=== PATIENT | male | born 1940 | race Caucasian/White ===

== ENCOUNTER 2018-09-24 14:58 | Emergency (ER) | payer MEDICARE ==
--- NOTE | 2018-09-24 15:06 | UC ---
Knee Pain HPI - History of Current Complaint Stated Complaint: KNEE PAIN Time Seen by Provider: 09/24/18 15:05 Hx Obtained From: Patient - Allergies/Home Medications Allergies/Adverse Reactions: Allergies Allergy/AdvReac Type Severity Reaction Status Date / Time Codeine [Codeine] Allergy Unknown Verified 06/14/16 11:50 Reaction Details MEDICATED SKIN SPRAY Allergy RED HEAVY Uncoded 06/14/16 11:50 RASH PMH/Surg Hx/FS Hx/Imm Hx - Additional Past Medical History Additional PMH: BPH Cardiovascular History: Hypertension - Surgical History Surgical History: Yes Surgery Procedure, Year, and Place: 1986 LEFT EYE SURGERY FOR CROSS EYE, 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 01/02/2005 CYSTOSCOPY LEFT RETROGRADE, [place] URETERAL [place]UL[place] [facility] [place] [facility] [place] CYSTOSCOPY RIGHT RETROGRADE, STENT INSERTION, FRAGMENT[place]OVAL OF [place] [facility] [place] - Family History Known Family History: Positive: Cardiac Disease, Hypertension - Social History Occupation: Retired Lives: With Family Alcohol Use: Occasionally Substance Use Type: None Smoking Status (MU): Former Smoker Type: Cigars, Pipe Amount Used/How Often: PIPE AND CIGARS Have You Smoked in the Last Year: No When Did the Patient Quit Smoking/Using Tobacco: LATE 1970'S Review of Systems All Other Systems Reviewed And Are Negative: Yes Constitutional: Positive: Negative Skin: Positive: Negative Respiratory: Positive: Negative Cardiovascular: Positive: Negative Neurovascular: Positive: Negative Musculoskeletal: Positive: Other: - Knee pain Neurological: Positive: Negative Psychological: Positive: Negative Knee Pain Course/Dx - Course Course Of Treatment: XR: Discharge - Sign-Out/Discharge Documenting (check all that apply): Patient Departure All imaging exams completed and their final reports reviewed: Yes - Discharge Plan Condition: Stable Disposition: HOME Patient Education Materials: Knee Pain (ED) Referrals: Hebert Spears MD [Primary Care Provider] - Germaine Hernandez MD [Medical Doctor] - As Soon As Possible Additional Instructions: If you develop a fever, shortness of breath, chest pain, new or worsening symptoms - please call your PCP or go to the ED. Your blood pressure was high at todays visit. Please see your primary provider within 4 weeks for recheck and re-evaluation. 1) Rest, Ice, and elevate your knee as much as possible 2) Please call Orthopedics at the number below to schedule a follow up appointment for further evaluation - Billing Disposition and Condition Condition: STABLE Disposition: Home
[2018-09-24 15:22] VITALS: BP 142/79
--- NOTE | 2018-09-24 15:37 | UC ---
Knee Pain HPI - HPI Summary HPI Summary: 77-year-old male comes to clinic today with a chief complaint of right knee pain and swelling. I week ago while working on a car he twisted his right knee and he felt a pop. He had pain then but he worked through IT. The next day he reinjured the knee and the knee started swelling. Pains worse with flexion and extension. It feels stable for ambulation. Today while sitting in mandaeism felt his lower leg starting to get numb. When he straightened out as needed the numbness improved. He has no prior history of blood clots. - History of Current Complaint Chief Complaint: UCLowerExtremity Stated Complaint: KNEE PAIN Time Seen by Provider: 09/24/18 15:05 Pain Intensity: 0 - Allergies/Home Medications Allergies/Adverse Reactions: Allergies Allergy/AdvReac Type Severity Reaction Status Date / Time MS Codeine [Codeine] Allergy Unknown Verified 06/14/16 11:50 Reaction Details MEDICATED SKIN SPRAY Allergy RED HEAVY Uncoded 06/14/16 11:50 RASH Home Medications: Home Medications Chondroitin Sulfate A Sodium [Chondroitin Sulfate Sodium] 09/24/18 [History] PMH/Surg Hx/FS Hx/Imm Hx Previously Healthy: Yes - Surgical History Surgical History: Yes Surgery Procedure, Year, and Place: 1986 LEFT EYE SURGERY FOR CROSS EYE, 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 01/02/2005 CYSTOSCOPY LEFT RETROGRADE, LEFT URETERAL CALCULI MANIPULATION AND URETERAL STENT INSERTION, [facility] [place]. 01/08/2005 ESWL LEFT URETERAL CALCULI, [facility] [place]. 06/04/2016 CYSTOSCOPY RIGHT RETROGRADE, STENT INSERTION, FRAGMENTATION AND REMOVAL OF BLADDER CALCULI, [facility] [place] - Family History Known Family History: Positive: Non-Contributory - Social History Alcohol Use: Occasionally Substance Use Type: None Smoking Status (MU): Former Smoker Type: Cigars, Pipe Amount Used/How Often: PIPE AND CIGARS Have You Smoked in the Last Year: No When Did the Patient Quit Smoking/Using Tobacco: LATE 1970'S Review of Systems All Other Systems Reviewed And Are Negative: Yes Constitutional: Positive: Negative Skin: Positive: Negative Eyes: Positive: Negative ENT: Positive: Negative Respiratory: Positive: Negative Cardiovascular: Positive: Negative Gastrointestinal: Positive: Negative Motor: Positive: Negative Neurovascular: Positive: Decreased Sensation - SEE HPI Musculoskeletal: Positive: Other: - SEE HPI Neurological: Positive: Paresthesia - SEE HPI Psychological: Positive: Negative Is Patient Immunocompromised?: No Physical Exam Triage Information Reviewed: Yes Appearance: Well-Appearing, No Pain Distress, Well-Nourished Vital Signs: Initial Vital Signs Temp 98.3 F 09/24/18 15:12 Pulse 93 09/24/18 15:12 Resp 16 09/24/18 15:12 BP 142/79 09/24/18 15:12 Pulse Ox 95 09/24/18 15:12 Vital Signs Reviewed: Yes Eye Exam: Normal Eyes: Positive: Conjunctiva Clear Neck exam: Normal Neck: Positive: Supple Respiratory: Positive: No respiratory distress Musculoskeletal: Positive: Strength Intact, ROM Intact, Other: - Right knee has an effusion. It's mildly tender to palpation in the popliteal area. Mildly tender to lateral MACMurray's. Stable to exam. Calf is nontender to palpation. Normal dorsalis pedis posterior tibial pulses capillary refill is normal. Patient reports decreased sensation on the ball of the right foot otherwise sensation is normal. Neurological Exam: Normal Neurological: Positive: Alert, Muscle Tone Normal Psychological Exam: Normal Psychological: Positive: Age Appropriate Behavior Skin Exam: Normal Knee Pain Course/Dx - Course Course Of Treatment: Order Information: KNEE RIGHT 4+ VWS. Accession Number: [id number]. CPT: 94400. Indication: Mills pop at the RIGHT knee. Pain radiates to foot. Comparison: February 04, 2008. Technique: RIGHT knee: Supine AP , tunnel, lateral, sunrise views. Report: Small joint effusion. Osteoarthritis with moderate medial joint space narrowing. and partial flattening of the articular surfaces with associated subchondral sclerosis. Negative for fracture. Mild nonfocal soft tissue swelling. IMPRESSION: #. Negative for fracture. Osteoarthritis. Small effusion. . <Electronically signed by Manuel Daniels MD in OV> 09/24/18 2366. I discussed the x-ray reports with the patient and his partner. Patient does have a knee effusion on the right. There is most probably some internal derangement perhaps a torn meniscus. The plan is ice elevation rests and naproxen. Follow-up with orthopedics. I believe the mechanism for the right foot paresthesia is the effusion compressing a nerve at the knee. Patient has not had no calf tenderness so I believe a DVT is unlikely. I discussed all this with the patient and let him know that if his catheter started giving him pain if he is concerned about a DVT needs to get a venous Doppler which we do not have available here in clinic today. No when we do have the venous Doppler and also that the emergency department always has the ability to check for DVTs and to go to the emergency department if anything gets worse or is any questions or concerns. His follow-up would be with primary care doctor and orthopedics. - Differential Dx/Diagnosis Provider Diagnosis: Effusion, right knee, Paresthesia of right lower extremity Discharge - Sign-Out/Discharge Documenting (check all that apply): Patient Departure All imaging exams completed and their final reports reviewed: Yes - Discharge Plan Condition: Stable Disposition: HOME Patient Education Materials: Knee Pain (ED), Swollen Knee Joint (ED) Referrals: Germaine Abrams MD [Medical Doctor] - As Soon As Possible Hebert Spears MD [Primary Care Provider] - Additional Instructions: TAKE ALEVE/NAPROXSEN DIRECTED. REST, ICE AND ELEVATE THE KNEE. Your blood pressure was high at todays visit. Please see your primary provider within 4 weeks for recheck and re-evaluation. FOLLOW UP WITH ORTHOPEDICS, DR ABRAMS. FOLLOW UP WITH YOUR PRIMARY CARE DOCTOR. GET RECHECKED FOR ANY WORSENING OF YOUR CONDITION; PAIN, CONTINUED OR WORSE NUMBNESS, DECREASED CIRCULATION IN THE LEG OR QUESTIONS OR CONCERNS. - Billing Disposition and Condition Condition: STABLE Disposition: Home
== END 2018-09-24 16:31 | disposition home or self-care (01) ==
LOC: UCEAST 14:58
DX: M25.461 Effusion, right knee (principal); R20.2 Paresthesia of skin; M17.11 Unilateral primary osteoarthritis, right knee; Z88.5 Allergy status to narcotic agent; Z87.891 Personal history of nicotine dependence
CPT/HCPCS: 99211; G0463

== ENCOUNTER 2018-12-06 08:39 | Emergency (ER) | payer MEDICARE ==
[2018-12-06 09:03] VITALS: BP 168/88
--- NOTE | 2018-12-06 09:40 | UC ---
Respiratory Complaint HPI - HPI Summary HPI Summary: 3-4 days of cough, congestion, headache, body aches and fatigue. Patient feels like he "just can't get going". No flu shot this season. No documented fever. Temperature 99.9 here in the UC. - History of Current Complaint Chief Complaint: UCRespiratory Stated Complaint: RESP ISSUE Time Seen by Provider: 12/06/18 09:33 Hx Obtained From: Patient Onset/Duration: Gradual Onset, Lasting Days, Still Present Timing: Constant Severity Initially: Moderate Severity Currently: Moderate Pain Intensity: 2 Pain Scale Used: 0-10 Numeric Character: Cough: Nonproductive Aggravating Factors: Nothing Alleviating Factors: Nothing Associated Signs And Symptoms: Positive: URI, Nasal Congestion. 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 01/02/2005 CYSTOSCOPY LEFT RETROGRADE, [place]RETERAL CALCULI [place]IPUL[place] [facility] [place] [facility] [place]. [place] CYSTOSCOPY RIGHT RETROGRADE, STENT INSERTION, FRAG[place] AND [place] [facility] [place] Family History Known Family History: Positive: Non-Contributory - Social History Alcohol Use: Occasionally Substance Use Type: None Smoking Status (MU): Former Smoker Type: Cigars, Pipe Amount Used/How Often: PIPE AND CIGARS Have You Smoked in the Last Year: No When Did the Patient Quit Smoking/Using Tobacco: LATE 1970'S Review of Systems All Other Systems Reviewed And Are Negative: Yes Constitutional: Positive: Fatigue ENT: Positive: Nasal Discharge Respiratory: Positive: Cough Cardiovascular: Positive: Negative Gastrointestinal: Positive: Nausea Musculoskeletal: Positive: Myalgia Neurological: Positive: Headache Physical Exam Triage Information Reviewed: Yes Appearance: No Pain Distress, Well-Nourished, Ill-Appearing - FATIGUED Vital Signs: Initial Vital Signs Temp 99.9 F 12/06/18 09:00 Pulse 89 12/06/18 09:00 Resp 20 12/06/18 09:00 BP 168/88 12/06/18 09:00 Pulse Ox 96 12/06/18 09:00 Laboratory Tests 12/06/18 09:43 Influenza A (Rapid) Positive A Vital Signs Reviewed: Yes Eyes: Positive: Conjunctiva Clear ENT: Positive: Hearing grossly normal, Pharynx normal Neck: Positive: Supple, Nontender, No Lymphadenopathy Respiratory Exam: Normal Cardiovascular Exam: Normal Abdomen Description: Positive: Soft Musculoskeletal: Positive: No Edema Neurological: Positive: Alert Psychological: Positive: Age Appropriate Behavior Skin: Negative: Rashes UC Diagnostic Evaluation - Laboratory O2 Sat by Pulse Oximetry: 96 Respiratory Course/Dx - Differential Dx/Diagnosis Provider Diagnosis: Influenza A Discharge - Sign-Out/Discharge Documenting (check all that apply): Patient Departure All imaging exams completed and their final reports reviewed: No Studies - Discharge Plan Condition: Stable Disposition: HOME Prescriptions: Oseltamivir CAP* [Tamiflu CAP*] 75 mg PO BID #10 cap Patient Education Materials: Influenza (ED) Referrals: Hebert Spears MD [Primary Care Provider] - If Needed Additional Instructions: SWAB POSITIVE FOR INFLUENZA A. TAMIFLU TWICE DAILY FOR 5 DAYS. OTC MEDS NEEDED FOR FEVER, BODY ACHES. STAY WELL HYDRATED AND RESTED. SEEK FOLLOW-UP IF YOU ARE NOT IMPROVING EXPECTED. - Billing Disposition and Condition Condition: STABLE Disposition: Home
[2018-12-06 09:48] LABS: Influenza A Molecular POSITIVE (Negative)
== END 2018-12-06 10:00 | disposition home or self-care (01) ==
LOC: UCEAST 08:39
DX: J10.1 Influenza due to other identified influenza virus with other respiratory manifestations (principal); I10 Essential (primary) hypertension; Z87.891 Personal history of nicotine dependence; Z88.5 Allergy status to narcotic agent; Z88.8 Allergy status to other drugs, medicaments and biological substances
CPT/HCPCS: 99212; G0463

== ENCOUNTER 2018-12-25 11:39 | Emergency (ER) | payer MEDICARE ==
[2018-12-25 11:54] VITALS: BP 175/92
--- NOTE | 2018-12-25 11:56 | UC ---
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 01/02/2005 CYSTOSCOPY LEFT RETROGRADE, LEFT URETERAL CALCULI MANIPULATION [place]RETERAL [place] [facility] [place] [facility] [place] CYSTOSCOPY RIGHT RETROGRADE, STENT INSERTION, FRAGMENTATION AND [place]ADDER [place] [facility] [place] Family History Known Family History: Positive: Non-Contributory - Social History Alcohol Use: Occasionally Substance Use Type: None Smoking Status (MU): Former Smoker Type: Cigars, Pipe Amount Used/How Often: PIPE AND CIGARS Have You Smoked in the Last Year: No When Did the Patient Quit Smoking/Using Tobacco: LATE 1969'S Physical Exam Vital Signs: Initial Vital Signs Temp 98.9 F 12/25/18 11:46 Pulse 86 12/25/18 11:46 Resp 18 12/25/18 11:46 BP 175/92 12/25/18 11:46 Pulse Ox 97 12/25/18 11:46 Discharge - Discharge Plan Referrals: Hebert Spears MD [Primary Care Provider] -
--- NOTE | 2018-12-25 12:19 | UC ---
Shoulder Pain HPI - HPI Summary HPI Summary: 78-year-old male comes with a chief complaint of left shoulder pain. Patient slipped and fell on the ice last evening and landed on his left elbow and shoulder. Pain is worse with an touching it and movement of the shoulder. No complaint of any chest pain or shortness of breath or other injury. Range of motion is limited in the left shoulder. No complaint of any numbness. 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 01/02/2005 CYSTOSCOPY LEFT RETROGRADE, LEFT URETERAL CALCULI MANIPULATION AND URETERAL STENT INSERTION, [facility] [place]. 01/08/2005 ESWL LEFT URETERAL CALCULI, [facility] [place]. 06/04/2016 CYSTOSCOPY RIGHT RETROGRADE, STENT INSERTION, FRAGMENTATION AND REMOVAL OF BLADDER CALCULI, [facility] [place] - Family History Known Family History: Positive: Non-Contributory - Social History Alcohol Use: Occasionally Substance Use Type: None Smoking Status (MU): Former Smoker Type: Cigars, Pipe Amount Used/How Often: PIPE AND CIGARS Have You Smoked in the Last Year: No When Did the Patient Quit Smoking/Using Tobacco: LATE S Review of Systems All Other Systems Reviewed And Are Negative: Yes Constitutional: Positive: Negative Skin: Positive: Negative Eyes: Positive: Negative ENT: Positive: Negative Respiratory: Positive: Negative Cardiovascular: Positive: Negative Gastrointestinal: Positive: Negative Motor: Positive: Other - SEE HPI Neurovascular: Positive: Negative Musculoskeletal: Positive: Other: - SEE HPI Neurological: Positive: Negative Psychological: Positive: Negative Is Patient Immunocompromised?: No Physical Exam Triage Information Reviewed: Yes Appearance: Well-Appearing, No Pain Distress, Well-Nourished Vital Signs: Initial Vital Signs Temp 98.9 F 12/25/18 11:46 Pulse 86 12/25/18 11:46 Resp 18 12/25/18 11:46 BP 175/92 12/25/18 11:46 Pulse Ox 97 12/25/18 11:46 Vital Signs Reviewed: Yes Eye Exam: Normal Eyes: Positive: Conjunctiva Clear Neck exam: Normal Neck: Positive: Supple, Nontender Respiratory: Positive: Lungs clear, Normal breath sounds, No respiratory distress Musculoskeletal: Positive: Other: - Normal bilateral radial pulses. Normal capillary refill bilateral arms and hands. No sensation deficits in the arms. Fingers wrists and elbows have full range of motion full-strength. Right shoulder is tender to palpation in the joint. Clavicle is nontender scapula is nontender. Patient's range of motion with the left shoulder is extremely limited to approximately 30 for extension and abduction. Did not attempt internal rotation. Neurological: Positive: Alert Psychological Exam: Normal Psychological: Positive: Age Appropriate Behavior Skin Exam: Normal Shoulder Course/Dx - Course Course Of Treatment: Patient declined sling. F/U orthopedics. - Differential Dx/Diagnosis Provider Diagnosis: Injury of left rotator cuff, Left shoulder pain Discharge - Sign-Out/Discharge Documenting (check all that apply): Patient Departure All imaging exams completed and their final reports reviewed: Yes - Discharge Plan Condition: Stable Disposition: HOME Patient Education Materials: Rotator Cuff Injury (ED), Shoulder Pain (ED) Referrals: Hebert Spears MD [Primary Care Provider] - Juan Monique MD [Medical Doctor] - Additional Instructions: FOLLOW UP WITH ORTHOPEDICS. GET RECHECKED FOR ANY WORSENING OF YOUR CONDITION OR QUESTIONS OR CONCERNS. - Billing Disposition and Condition Condition: STABLE Disposition: Home
== END 2018-12-25 13:24 | disposition home or self-care (01) ==
LOC: UCEAST 11:39
DX: M25.512 Pain in left shoulder (principal); S46.002A Unspecified injury of muscle(s) and tendon(s) of the rotator cuff of left shoulder, initial encounter; Z87.891 Personal history of nicotine dependence; Z88.5 Allergy status to narcotic agent; Z88.8 Allergy status to other drugs, medicaments and biological substances; W00.0XXA Fall on same level due to ice and snow, initial encounter; Y92.9 Unspecified place or not applicable
CPT/HCPCS: 99211; G0463

== ENCOUNTER 2019-01-29 15:07 | Emergency (ER) | payer MEDICARE ==
--- OUTSIDE RECORDS SUMMARY | 2019-01-29 15:28 | XMS REPORT | Continuity of Care Document ---
:1940 External Reference #:[id number] Author Name Minoo Kim Care Team Providers Name Role Phone Hebert Spears MD Primary Care Physician Unavailable Payers Date Identification Numbers Payment Provider Subscriber Policy Number: [id number] Medicare Blue Ppo Roderick Thomson PayID: [id number] [address] [address] [place] [address] Effective: 2003 Policy Number: [id number] Medicare Roderick Thomson Expires: 2018 PayID: [id number] [address] [place] [address] Expires: 2018 Policy Number: [facility] Roderick Thomson [id number] PayID: [id number] [address] [place] [address] Advance Directives Description No Information Available Problems Description No Information Family History Date Family Member(s) Observation Comments General No Current Problems Social History Type Date Description Comments Sex Unknown Lives With Alone Occupation Retired ETOH Use Occasionally consumes alcohol Tobacco Use Start: Unknown Patient has never smoked Smoking Status Reviewed: 01/08/19 Patient has never smoked Exercise Type/Frequency Exercises sporadically Allergies, Adverse Reactions, Alerts Description No Known Drug Allergies Medications Medication Date Status Form Strength Qnty SIG Indications Ordering Provider Oseltamivir Phosphate Active Capsules 75mg Take 1 Unknown /0000 Capsule By Mouth Twice A Day Irbesartan Active Tablets 150mg [place], / MD Hebert Tamsulosin HCL Active Capsules 0.4mg [place], / MD Hebert Hydrochlorothiazide Active Tablets 25mg Katie /0000 Tia NP Immunizations Description No Information Available Vital Signs Date Vital Result Comment 01/08/2019 8:30am Height 70 inches 5'10" Weight 255.00 lb Heart Rate 70 /min BP Systolic 134 mmHg BP Diastolic 80 mmHg Respiratory Rate 20 /min Pain Level 5 BMI (Body Mass Index) 36.6 kg/m2 12/27/2018 10:02am Height 70 inches 5'10" Weight 255.00 lb Heart Rate 78 /min BP Systolic 120 mmHg BP Diastolic 76 mmHg Respiratory Rate 20 /min Pain Level 6 BMI (Body Mass Index) 36.6 kg/m2 Results Description No Information Available Procedures Description No Information Available Encounters Type Date Location Provider Dx Diagnosis Office Visit 11/22/2009 [facility] Say Galarza, 599.0 UTI Urinary Tract 12:15a valerio Morrison M.D. Infection Site Hospitalists Not Spec 401.9 Hypertension Unspec Office Visit 11/21/2009 12:30a [facility] Lalit Mims, 599.0 UTI Urinary valerio Morrison M.D. Tract Infection Hospitalists Site Not Spec 995.91 Sepsis 401.9 Hypertension Unspec 436 Cerebrovascular Disease Acute Ill-Defined 327.23 Obstructive Sleep Apnea Adult & Pediatric Plan of Treatment 01/08/2019 - Jhonny Enamorado M.D.S46.012D Strain of muscle(s) and tendon(s) of the rotator cuff of lefFollow up:Follow up: As needed Move the left shoulder as much as able each day. Go up, out, and to your back Work overhead if able. If continued pain and problems, please see Dr. Ma
--- NOTE | 2019-01-29 15:42 | ED ---
Laceration/Wound HPI - HPI Summary HPI Summary: 78-year-old male presents with left hand laceration today. He states that he cut it while he was working on a car. He denies any foreign body in the wound. He states that he cut it a couple hours ago. tetanus is up-to-date. He is not diabetic. it is not actively bleeding. has full range of motion. No numbness or tingling. No other injury. - History of Current Complaint Stated Complaint: LEFT HAND LACERATION PER PT Time Seen by Provider: 01/29/19 15:21 Pain Intensity: 0 - Allergy/Home Medications Allergies/Adverse Reactions: Allergies Allergy/AdvReac Type Severity Reaction Status Date / Time codeine Allergy unk Verified 01/01/19 14:37 MEDICATED SKIN SPRAY Allergy RED HEAVY Uncoded 01/01/19 14:37 RASH PMH/Surg Hx/FS Hx/Imm Hx Endocrine/Hematology History: Denies: Hx Diabetes Cardiovascular History: Reports: Hx Hypertension - HCTZ Denies: Hx Pacemaker/ICD Respiratory History: Reports: Hx Sleep Apnea History: Reports: Hx Kidney Stones - BILATERAL, Other Problems/Disorders - HX OF BLADDER CALCULI, CURRENTLY ENLARGE PROSTATE Denies: Hx Renal Disease Musculoskeletal History: Reports: 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 01/02/2005 CYSTOSCOPY LEFT RETROGRADE, LEFT URETERAL CALCULI MANIPULATION AND URETER[place] ST[place] [facility] [place]/08/2005 ESWL LEFT URETERAL CALCULI, [facility] [place]/04/2016 CYSTOSCOPY RIGHT RETROGRADE, STENT INSERTION, FRAGMENTATION AND REMOVAL OF BLADDER CALCULI[place] [facility] [place] Anesthesia Reactions: No Infectious Disease History: No Infectious Disease History: Denies: Traveled Outside the [place] in Last 30 Days - Family History Known Family History: Positive: Non-Contributory - Social History Alcohol Use: Occasionally Substance Use Type: Reports: None Smoking Status (MU): Former Smoker Type: Cigars, Pipe Amount Used/How Often: PIPE AND CIGARS Have You Smoked in the Last Year: No Review of Systems Negative: Fever Negative: Chest Pain Negative: Shortness Of Breath Positive: Other - left hand laceration All Other Systems Reviewed And Are Negative: Yes Physical Exam Triage Information Reviewed: Yes Vital Signs On Initial Exam: Initial Vitals Temp Pulse Resp BP Pulse Ox 98.2 F 84 17 171/92 93 01/29/19 15:12 01/29/19 15:12 01/29/19 15:12 01/29/19 15:12 01/29/19 15:12 Vital Signs Reviewed: Yes Appearance: Positive: Well-Appearing Skin: Positive: Warm, Dry, Other - 6cm by 1/2cm semicircular laceration to left hand near thumb Head/Face: Positive: Normal Head/Face Inspection Eyes: Positive: Normal, Conjunctiva Clear ENT: Positive: Pharynx normal Respiratory/Lung Sounds: Positive: Clear to Auscultation, Breath Sounds Present Cardiovascular: Positive: Normal, RRR Musculoskeletal: Positive: Strength/ROM Intact - left hand, Other - good pulses Neurological: Positive: Normal Psychiatric: Positive: Normal Procedures - Laceration/Wound Repair 1 Location: Other - left dorsan hand Description: Irregular Anesthesia: 1.0%, Lido Length, Depth and Shape: 6 cm wide, 0.5 cm deep, U shape Betadine Prep?: No Irrigated w/ Saline (ccs): 500 Laceration/Wound Explored: contaminated Closure: Single Layer Suture Type: Prolene - 4-0 Number of Sutures: 8 Layer Closure?: No Sterile Dressing Applied?: No - telfa and coban Diagnostics - Vital Signs Vital Signs Temp Pulse Resp BP Pulse Ox 01/29/19 15:12 98.2 F 84 17 171/92 93 - Laboratory Lab Statement: Any lab studies that have been ordered have been reviewed, and results considered in the medical decision making process. Laceration Repair Course/Dx - Course Course Of Treatment: 78-year-old male presents with left hand laceration today. He states that he cut it while he was working on a car. He denies any foreign body in the wound. He states that he cut it a couple hours ago. tetanus is up-to-date. He is not diabetic. it is not actively bleeding. has full range of motion. No numbness or tingling. No other injury. On exam has 6 cm by 1/2cm laceration of dorsum of left hand. Laceration repair performed by HUMAIRA Harvey. 6 cm irregular laceration was repaired with 8 simple interrupted 4-0 prolene suture. 5 cc of 1% lidocaine injected to the laceration prior to repair. The area was irrigated with 500 cc of saline. Telfa and coban was used to dress the area. Pt tolerated procedure well. told to keep area clean and dry. patient requesting antibiotic. patient understand and agrees with plan. - Differential Dx Differental Diagnoses: Abrasion, Avulsion, Laceration - Clinical Impression Provider Diagnoses: Laceration of left hand Discharge - Sign-Out/Discharge Documenting (check all that apply): Patient Departure Patient Received Moderate/Deep Sedation with Procedure: No - Discharge Plan Condition: Good Disposition: HOME Prescriptions: Cephalexin CAP* [Keflex CAP*] 500 mg PO BID #10 cap Patient Education Materials: Care For Your Stitches (ED) Referrals: Hebert Spears MD [Primary Care Provider] - Additional Instructions: Take Tylenol for pain every 6 hours as needed Keep area clean and dry for 24 hours Return to ED or primary in 8-10 days to have sutures removed take keflex twice a day for 5 days Return to ED if develop signs of infection such as fever, spreading redness, or pus. - Billing Disposition and Condition Condition: GOOD Disposition: Home
[2019-01-29] MEDS ORDERED: Tetan/Diph/Pertus SYR(Tdap)* 0.5 ML SYR(BOOSTRIX) use SYR IM ONE (17:12)
[2019-01-29 17:21] VITALS: BP 177/98
== END 2019-01-29 17:20 | disposition home or self-care (01) ==
LOC: ED 15:07
DX: S61.412A Laceration without foreign body of left hand, initial encounter (principal); W45.8XXA Other foreign body or object entering through skin, initial encounter; Y92.9 Unspecified place or not applicable; I10 Essential (primary) hypertension; Z87.442 Personal history of urinary calculi; Z87.891 Personal history of nicotine dependence
CPT/HCPCS: 12002; 90471; 90715; 99282

== ENCOUNTER 2020-12-19 07:52 | Inpatient (IN) ==
[~2020-12-19 07:52] MED LIST: Buffered Lidocaine 1% SYRIN 1 ml INTRADERM ONE; Famotidine IV 10 MG/ML 2 ml VIAL (20 mg) IV ONE; Lactated Ringers 1000 ml BAG 1,000 ML IV SCH
[2020-12-19] MEDS ORDERED: Famotidine IV 10 MG/ML 2 ml VIAL (20 mg) ONE (08:19)
[2020-12-19] MEDS ORDERED: Propofol 10 MG/ML 20 ML BTL ONE (09:09)
[2020-12-19] MEDS ORDERED: fentaNYL 250 mcg/5 ml 50 MCG/ML 5 ml VIAL (250 MCG) ONE (09:09)
[2020-12-19] MEDS ORDERED: Ondansetron 4 mg VIAL 2 MG/ML 2 ml VIAL ONE (09:09)
[2020-12-19] MEDS ORDERED: Dexamethasone IV 4 MG/ML VIAL 1 ml VIAL ONE (09:09)
[2020-12-19] MEDS ORDERED: Succinylcholine 200 mg VIAL 20 mg/ml 10 ml VIAL (200 mg) ONE (09:09)
[2020-12-19] MEDS ORDERED: Lidocaine 2% w/ EPI 1:200,000 MPF 20 ML SDV VIAL ONE (10:07)
[2020-12-19] MEDS ORDERED: fentaNYL 100 mcg/2 ml 50 MCG/ML VIAL IV PRN (10:39)
[2020-12-19] MEDS ORDERED: DiMENhydriNATE IV 50 mg/ml 1 ml VIAL IV PUSH PRN (10:39)
[2020-12-19] MEDS ORDERED: Ondansetron 4 mg VIAL 2 MG/ML 2 ml VIAL IV PRN (10:39)
[2020-12-19] MEDS ORDERED: Levalbuterol 0.63MG/3ML NEB UNIT OF USE INH PRN (10:39)
[2020-12-19] MEDS ORDERED: Acetaminophen IV 1 GM/100ML 100 ML ONE (10:39)
[2020-12-19] MEDS ORDERED: Naloxone 0.4 mg VIAL 0.4 mg/ml 1 ml VIAL IV PRN (10:39)
[2020-12-19] MEDS ORDERED: EPHEDrine (Pressors) 50 MG/ML VIAL ONE (11:18)
[2020-12-19] MEDS ORDERED: Metoprolol Tartrate 5 mg VIAL 5 ml VIAL (1 mg/ml) ONE (12:57)
[2020-12-19] MEDS ORDERED: fentaNYL 100 mcg/2 ml 50 MCG/ML VIAL ONE (13:24)
[2020-12-19] MEDS ORDERED: Propofol 10 mg/ml 100 ML BTL 100 ML ONE (14:28)
[2020-12-19 16:56] LABS: Urine Appearance Clear; Urine Bilirubin Negative (Negative); Urine Blood Negative (Negative); Urine Color Yellow; Urine Glucose Negative (Negative); Urine Ketones Negative (Negative); Urine Nitrite Negative (Negative); Urine Protein 1+(30 mg/dL) (Negative); Urine Specific Gravity 1.017 (1.010-1.030); Urine Urobilinogen Negative (Negative)
[2020-12-19 17:03] LABS: Urine Bacteria Absent (Absent); Urine Red Blood Cell 1+(3-5/hpf) (Absent); Urine White Blood Cell Trace(0-5/hpf) (Absent)
[2020-12-19 17:05] LABS: Troponin I 0.01 ng/mL (<0.03)
[2020-12-19 17:06] LABS: ABS Lymphocytes 0.4 10^3/ul (1.0-4.8); ABS Monocytes 0.2 10^3/ul (0-0.8); ABS Neutrophils 8.6 10^3/ul (1.5-7.7); Eosinophil % 0.4 %; Hematocrit 40 % (42-52); Hemoglobin 12.7 g/dL (14.0-18.0); Lymphocyte % 4.3 %; Mean Corpuscular HGB Conc 32 g/dL (31-36); Mean Corpuscular Hemoglobin 30 pg (27-31); Mean Corpuscular Volume 96 fL (80-94); Mean Platelet Volume 7.2 fL (7.4-10.4); Platelet Count 230 10^3/uL (150-450); Red Blood Count 4.19 10^6 /uL (4.18-5.48); Red Cell Distribution Width 16 % (10-15); White Blood Count 9.2 10^3/uL (3.5-10.8)
[2020-12-19] MEDS: Propofol 10 mg/ml 100 ML BTL 100 ML IV SCH ×3 (17:26→22:24)
[2020-12-19] MEDS ORDERED: Magnesium Sulfate IV 1GM/100ML 1 GM/100 ML BAG IV ONE (17:39)
[2020-12-19] MEDS: Chlorhexidine MOUTHWASH 0.12% 15 ML UDC SWISH SPIT SCH ×2 (17:40→21:01)
[2020-12-19 18:44] LABS: Albumin 3.5 g/dL (3.2-5.2); Calcium 8.7 mg/dL (8.6-10.3); Magnesium 1.9 mg/dL (1.9-2.7); Potassium 4.7 mmol/L (3.5-5.0); Total Bilirubin 0.6 mg/dL (0.2-1.0)
[2020-12-19 18:51] LABS: Albumin/Globulin Ratio 1.3 (1-3); BUN/Creatinine Ratio 24.2 (8-20); EGFR African American 87.6 (>60); EGFR Non-African American 72.4 (>60); Globulin 2.6 g/dL (2-4); Phosphorus 3.8 mg/dL (2.5-5.0); Total Protein 6.1 g/dL (6.4-8.9)
[2020-12-19] MEDS: Famotidine IV 10 MG/ML 2 ml VIAL (20 mg) IV SLOW PU SCH (19:57)
[2020-12-19] MEDS ORDERED: Furosemide 40 mg/4 ml IV VIAL IV SLOW PU ONE (21:34)
[2020-12-20] MEDS: Propofol 10 mg/ml 100 ML BTL 100 ML IV SCH ×3 (01:28→08:27)
[2020-12-20] MEDS: Chlorhexidine MOUTHWASH 0.12% 15 ML UDC SWISH SPIT SCH ×3 (02:18→10:21)
[2020-12-20] MEDS ORDERED: NS 0.9% 250 ml 250 ML IV ONE (04:34)
[2020-12-20] MEDS ORDERED: Norepinephrine 16MCG/ML IVPRE 4,000 MCG/250 ML BAG IV ONE (04:50)
[2020-12-20] MEDS ORDERED: Norepinephrine 16MCG/ML IVPRE 4,000 MCG/250 ML BAG IV SCH ×2 (05:00→05:44)
[2020-12-20] MEDS ORDERED: Atropine 0.1 MG/ML 10 ml SYR (1 mg) ONE (05:00)
[2020-12-20] MEDS ORDERED: Atropine 1 MG/ML INJ 1 ML VIAL IV PUSH ONE (05:01)
[2020-12-20] MEDS ORDERED: Atropine 0.1 MG/ML 10 ml SYR (1 mg) IV PUSH ONE (05:05)
[2020-12-20] MEDS ORDERED: Atropine 0.1 MG/ML 10 ml SYR (1 mg) IV PUSH PRN (05:44)
[2020-12-20] MEDS: Famotidine IV 10 MG/ML 2 ml VIAL (20 mg) IV SLOW PU SCH ×2 (07:41→20:36)
[2020-12-20] MEDS ORDERED: Ondansetron 4 mg VIAL 2 MG/ML 2 ml VIAL IV PRN (09:01)
[2020-12-20] MEDS ORDERED: Ondansetron 4 mg VIAL 2 MG/ML 2 ml VIAL ONE (09:02)
[2020-12-20] MEDS ORDERED: Albuterol/Ipratropium NEB.SOL (2.5/0.5 MG) 3 ML NEB.SOLN INH PRN (09:06)
[2020-12-20] MEDS ORDERED: Albuterol/Ipratropium NEB.SOL (2.5/0.5 MG) 3 ML NEB.SOLN ONE (09:31)
[2020-12-21 05:28] LABS: Hematocrit 38 % (42-52); Hemoglobin 12.3 g/dL (14.0-18.0); Mean Corpuscular HGB Conc 33 g/dL (31-36); Mean Corpuscular Hemoglobin 30 pg (27-31); Mean Corpuscular Volume 91 fL (80-94); Platelet Count 226 10^3/uL (150-450); Red Blood Count 4.15 10^6 /uL (4.18-5.48); Red Cell Distribution Width 15 % (10-15); White Blood Count 7.5 10^3/uL (3.5-10.8)
[2020-12-21 05:44] LABS: BUN/Creatinine Ratio 25.3 (8-20); Calcium 8.4 mg/dL (8.6-10.3); EGFR African American 87.6 (>60); EGFR Non-African American 72.4 (>60); Potassium 4.3 mmol/L (3.5-5.0)
[2020-12-21 07:41] LABS: Phosphorus 2.9 mg/dL (2.5-5.0)
[2020-12-21] MEDS: Famotidine IV 10 MG/ML 2 ml VIAL (20 mg) IV SLOW PU SCH (07:51)
[2020-12-21 11:11] VITALS: BP 148/90
[2020-12-30 14:06] LABS: Case Number CR-21-15101
== END 2020-12-21 14:30 | disposition home or self-care (01) | DRG 829 ==
LOC: OR 07:52 → ICU 15:44
PROVIDERS: ADMIT Internal Medicine; ATTEND Internal Medicine

== ENCOUNTER 2024-06-28 13:24 | Observation (INO) ==
[2024-06-28 14:05] LABS: ABS Eosinophils 0.1 10^3/uL (0.0-0.5); ABS Lymphocytes 0.6 10^3/uL (1.0-4.8); ABS Monocytes 0.4 10^3/uL (0.0-1.1); ABS Neutrophils 4.4 10^3/uL (1.5-7.6); Eosinophil % 2.3 %; Hematocrit 42.6 % (38-53); Hemoglobin 14.3 g/dL (13.2-16.3); Lymphocyte % 10.2 %; Mean Corpuscular Hemoglobin 32.2 pg (27-33); Mean Corpuscular Hgb Conc 33.6 g/dL (31-36); Mean Corpuscular Volume 95.7 fL (80-97); Nucleated Red Blood Cells % 0.1 %/100WBC (0.0-0.8); Platelet Count 276 10^3/uL (150-450); Red Blood Count 4.45 10^6/uL (4.06-5.63); Red Cell Distribution Width 15.6 % (12-17); White Blood Count 5.5 10^3/uL (3.6-10.2)
[2024-06-28 14:15] LABS: INR 1.16 (0.85-1.14)
[2024-06-28 14:33] LABS: Albumin 4.2 g/dL (3.2-5.2); Calcium 9.4 mg/dL (8.6-10.3); Creatinine, Serum 0.88 mg/dL (0.67-1.17); Globulin 2.1 g/dL (2-4); Potassium 4.4 mmol/L (3.5-5.0); Total Bilirubin 0.9 mg/dL (0.2-1.0); Total Protein 6.3 g/dL (6.4-8.9); eGFR CKD-EPI 84.3 (>60)
[2024-06-28 15:32] LABS: High Sensitivity Troponin 1 Hr 9 pg/mL (<20)
[2024-06-28 17:43] LABS: Magnesium 1.9 mg/dL (1.9-2.7)
[2024-06-28 17:50] LABS: TSH Ultra Thyroid Stim Horm 1.52 mcIU/mL (0.34-5.60)
[2024-06-28 21:10] LABS: Urine Appearance Clear; Urine Bilirubin Negative (Negative); Urine Blood Negative (Negative); Urine Color Light-Yellow; Urine Glucose Negative (Negative); Urine Ketones Negative (Negative); Urine Nitrite Negative (Negative); Urine Protein Negative (Negative); Urine Specific Gravity 1.018 (1.002-1.030); Urine Urobilinogen Negative (Negative)
[2024-06-28] MEDS: Enoxaparin 40 MG/0.4 ML SYR SUBCUT SCH (21:52)
[2024-06-28] MEDS ORDERED: Sulfur Hexaflouride MICROSPHR 25 MG VIAL IV PRN (22:26)
[2024-06-29 05:55] LABS: ABS Basophils 0.1 10^3/uL (0.0-0.1); ABS Eosinophils 0.2 10^3/uL (0.0-0.5); ABS Lymphocytes 0.9 10^3/uL (1.0-4.8); ABS Monocytes 0.5 10^3/uL (0.0-1.1); ABS Neutrophils 3.5 10^3/uL (1.5-7.6); ABS Nucleated RBC 0.01 10^3/ul; Hemoglobin 13.6 g/dL (13.2-16.3); Lymphocyte % 17.2 %; Mean Corpuscular Hemoglobin 31.8 pg (27-33); Mean Corpuscular Hgb Conc 33.2 g/dL (31-36); Mean Corpuscular Volume 95.7 fL (80-97); Mean Platelet Volume 7.1 fL (7.5-11.2); Nucleated Red Blood Cells % 0.1 %/100WBC (0.0-0.8); Platelet Count 245 10^3/uL (150-450); Red Blood Count 4.29 10^6/uL (4.06-5.63); Red Cell Distribution Width 15.5 % (12-17); White Blood Count 5.2 10^3/uL (3.6-10.2)
[2024-06-29 06:32] LABS: Calcium 8.8 mg/dL (8.6-10.3); Creatinine, Serum 0.93 mg/dL (0.67-1.17); Magnesium 1.9 mg/dL (1.9-2.7); Potassium 4.3 mmol/L (3.5-5.0); eGFR CKD-EPI 80.5 (>60)
[2024-06-29 18:28] VITALS: BP 132/73
== END 2024-06-29 19:48 | disposition home or self-care (01) ==
LOC: EDHOLD 13:24 → ED 13:24 → MEDTELE 06-29 10:31
PROVIDERS: ADMIT Internal Medicine; ATTEND Internal Medicine